=== PATIENT | male | born 1970 | race Two or more races ===

== ENCOUNTER 2018-11-28 12:21 | Outpatient (CLI) | payer OTHER | END 2018-11-28 17:00 | disposition home or self-care (01) | LOC: TOM 12:21 | DX: J35.2 Hypertrophy of adenoids (principal) ==

== ENCOUNTER 2018-11-28 13:06 | Outpatient (CLI) | payer OTHER | END 2018-11-28 14:53 | disposition home or self-care (01) | LOC: LAB 13:06 | DX: N20.0 Calculus of kidney (principal); Z51.81 Encounter for therapeutic drug level monitoring ==

== ENCOUNTER 2018-11-29 09:49 | Outpatient (CLI) | payer OTHER | END 2018-11-29 10:04 | disposition home or self-care (01) | LOC: TOM 09:49 | DX: E21.0 Primary hyperparathyroidism (principal) ==

== ENCOUNTER 2018-12-26 12:45 | Outpatient (CLI) | payer OTHER | END 2018-12-26 17:00 | disposition home or self-care (01) | LOC: MRI 12:45 | DX: M79.671 Pain in right foot (principal) | CPT/HCPCS: 73718 ==